=== PATIENT | female | born 1995 | race African-American/Black ===

== ENCOUNTER → 2018-12-10 | Outpatient (CLI) | payer BC ==
[2018-12-10] VITALS (31 sets, daily range): BP systolic 108–117; BP diastolic 60–84
[~2018-12-10] VITALS: Ht 167.6 cm; Wt 77.1 kg
[~2018-12-10] MED LIST: ACHD5005 PO; IBP600T1 PO; MECL12.5 PO; NITR-65 PO; NS IV 1000 ML 1,000 ML IV ONE; NS IV 1000 ML 1,000 ML ONE; PHEN200T27 PO
--- NOTE | 2018-12-10 11:08 | Cardiology Tilt Table Test ---
Cardiology-Tilt Table Test Tilt Table Test Date 12/10/18 Baseline Vitals Vital Signs Date Time Temp Pulse Resp B/P (MAP) Pulse Ox O2 Delivery O2 Flow Rate FiO2 12/10/18 10:22 51 18 117/60 (79) 99 Room Air Vital Signs VS - Last 72 Hours, by Label 12/10/18 12/10/18 12/10/18 12/10/18 10:22 10:25 10:26 10:27 Pulse 51 56 56 55 Resp 18 18 18 18 B/P (MAP) 117/60 (79) 114/74 (87) 111/71 (84) 112/69 (83) Pulse Ox 99 99 99 99 O2 Delivery Room Air Room Air Room Air Room Air 12/10/18 12/10/18 12/10/18 12/10/18 10:28 10:29 10:30 10:31 Pulse 58 61 58 61 Resp 18 18 18 18 B/P (MAP) 115/67 (83) 109/68 (82) 112/61 (78) 108/69 (82) Pulse Ox 97 97 98 98 O2 Delivery Room Air Room Air Room Air Room Air 12/10/18 12/10/18 12/10/18 12/10/18 10:32 10:33 10:34 10:35 Pulse 63 63 63 57 Resp 18 18 18 18 B/P (MAP) 113/70 (84) 111/70 (84) 112/67 (82) 112/67 (82) Pulse Ox 98 98 98 98 O2 Delivery Room Air Room Air Room Air Room Air 12/10/18 12/10/18 12/10/18 12/10/18 10:36 10:37 10:38 10:39 Pulse 57 51 60 60 Resp 18 18 18 18 B/P (MAP) 111/65 (80) 116/63 (80) 114/62 (79) Pulse Ox 98 98 97 99 O2 Delivery Room Air Room Air Room Air Room Air 12/10/18 12/10/18 12/10/18 12/10/18 10:40 10:41 10:42 10:43 Pulse 64 68 63 59 Resp 18 18 18 18 B/P (MAP) 114/69 (84) 111/71 (84) 114/73 (87) 114/73 (87) Pulse Ox 95 95 95 96 O2 Delivery Room Air Room Air Room Air Room Air 12/10/18 12/10/18 12/10/18 12/10/18 10:44 10:45 10:46 10:47 Pulse 67 68 53 57 Resp 18 18 18 18 B/P (MAP) 111/74 (86) 111/70 (84) 116/67 (83) 116/67 (83) Pulse Ox 96 96 96 96 O2 Delivery Room Air Room Air Room Air Room Air 12/10/18 12/10/18 12/10/18 12/10/18 10:48 10:49 10:50 10:51 Pulse 67 68 60 62 Resp 18 18 18 18 B/P (MAP) 111/69 (83) 116/73 (87) 116/73 (87) 110/70 (83) Pulse Ox 96 96 96 96 O2 Delivery Room Air Room Air Room Air Room Air 12/10/18 12/10/18 12/10/18 10:52 10:53 10:55 Pulse 64 59 46 Resp 18 18 18 B/P (MAP) 114/82 (93) 111/64 (80) 116/67 (83) Pulse Ox 96 97 99 O2 Delivery Room Air Room Air Room Air Patient was tilted to 75 degrees for [10] minutes, then returned to supine position, given [2] sublingual nitroglycerin tablets, then tilted again to 75 degrees for [15] minutes. During test, patient was: asymptomatic In Conclusion;: Negative Tilt Table Test Patient instructed to continue to increase salt and fluid intake. Follow up appt on December at 9:40am This is Sarah Bertrand PA-C, as a scribe for Dr. Ayala. SARAH ARAIZA Dec 10, 2018 11:08
== END ==
LOC: CARD 09:22
PROVIDERS: ATTEND Internal Medicine Cardiovascular Disease
DX: R55 Syncope and collapse (principal); F51.01 Primary insomnia; I07.1 Rheumatic tricuspid insufficiency
CPT/HCPCS: 93306; 93660

== ENCOUNTER 2019-01-06 23:41 | Emergency (ER) | payer BC ==
[~2019-01-06] VITALS: Ht 167.6 cm; Wt 74.8 kg
[~2019-01-06 23:41] MED LIST changes: -NS IV 1000 ML 1,000 ML IV ONE; -NS IV 1000 ML 1,000 ML ONE
--- NOTE | 2019-01-07 00:17 | ED EENT ---
History of Present Illness General Chief Complaint: Laceration Stated Complaint: RT EYEBROW LAC Nursing Triage Note: 2cm laceration above right eye. struck with thrown softball. no loc. 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 NO ACTIVE BLEEDING NO LOSS OF CONSCIOUSNESS NO VISION CHANGES C/O HEAD PAIN NO DIZZINESS NO NAUSEA/VOMITING NO PARESTHESIAS OR MOTOR DEFICITS NO NOSE BLEEDING PT IS UP TO DATE ON VACCINATIONS LMP 2012--HAS IUD IN PLACE Allergies and Home Medications Allergies Coded Allergies: No Known Drug Allergies (Unverified , 10/06/12) Home Medications No Active Prescriptions or Reported Meds Patient Home Medication List Home Medication List Reviewed: Yes Review of Systems Review of Systems Constitutional: no symptoms reported Eyes: See HPI Ears: No Symptoms Reported Nose: denies epistaxis; pain Mouth: no symptoms reported Throat: no symptoms reported Respiratory: no symptoms reported Cardiovascular: no symptoms reported Gastrointestinal: no symptoms reported : No Musculoskeletal: no symptoms reported Skin: see HPI Neurological: See HPI, Headache Hematologic/Lymphatic: No Symptoms Reported Immunological/Allergic: no symptoms reported Past Rxvsufr-Autczr-Vojdqd Hx Patient Social History Alcohol Use: Occasionally Uses Recreational Drug Use: No Smoking Status: Never a Smoker 2nd Hand Smoke Exposure: No Recent Foreign Travel: No Contact w/Someone Who Travel: No Recent Infectious Disease Expo: No Recent Hopitalizations: No Immunizations Up To Date Tetanus Booster (TDap): Less than 5yrs PED Vaccines UTD: Yes Seasonal Allergies Seasonal Allergies: No Past Medical History Surgeries: Yes Section Respiratory: No Cardiac: No Neurological: No : No Reproductive Disorders: No 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 Genitourinary: No Gastrointestinal: No Musculoskeletal: No Endocrine: No HEENT: No Cancer: No Psychosocial: No Integumentary: No Blood Disorders: No Family Medical History Family history: Asthma 09 BROTHER (oldest brother) No Family History of: Abdominal aortic aneurysm Anival's disease Alcoholism Aphasia Cancer Cancer of colon Cataract Chest pain Congenital heart disease Congestive heart failure Cystic fibrosis Dementia Dysphagia Family history: Allergy Family history: Alzheimer's disease Family history: Arthritis Family history: Breast disease Family history: Cardiovascular disease Family history: Coronary thrombosis Family history: Diabetes mellitus Family history: Gastrointestinal disease Family history: Glaucoma Family history: Hypertension Family history: Osteoporosis Family history: Thyroid disorder Headache Hearing loss Heart disease Hereditary disease History of - anemia History of - disorder History of - respiratory disease History of drug abuse Human immunodeficiency virus (HIV) seropositivity Hypercholesterolemia Infertile Kidney disease Malignant neoplasm of lung Myocardial infarction Parkinson's disease Prostate cancer Psychotic disorder Seizure disorder Stroke Tuberculosis Visual impairment No Pertinent Family Hx Physical Exam Vital Signs Vital Signs - First Documented 01/06/19 23:59 Temp 97.7 Pulse 60 Resp 16 B/P (MAP) 133/73 (93) Pulse Ox 100 O2 Delivery Room Air Height, Weight, BMI Height: 5'6.00" Weight: 165lbs. 0.0oz. 74.802270xv; 27.4 BMI Method:Stated General Appearance: WD/WN, no apparent distress Eyes: bilateral eye normal inspection, bilateral eye PERRL, bilateral eye EOMI Ears: bilateral ear auricle normal, bilateral ear canal normal, bilateral ear TM normal Nose: sinus tenderness, other (TENDERNESS TO RIGHT AND MOD FRONTAL AREA, AND RIGHT PERIORBITAL AREA. TENDERNESS TO BRIDGE OF NOSE, NO SWELLING OR BRUISING TO NOSE, NO BLEEDING FROM NOSE. NO SEPTAL DEVIATION OF SEPTAL HEMATOMA. 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, no motor/sensory deficits, alert, normal mood/affect, oriented x 3 Skin: normal color, warm/dry, tattoos/piercings (MULTIPLE TATTOOS AND PIERCINGS), other (2 CM SUPERFICIAL LACERATION TO RIGHT BROW) Procedures/Interventions Other Wound Location RIGHT BROW Wound Length (cm): 2 Wound's Depth, Shape: superficial, linear Wound Explored: clean Betadine Prep?: No (ETASEPT) Other Closure Supply: Wound Adhesive Progress/Results/Core Measures Results/Orders My Orders Orders - BOYD LUIS DO Ct Head/Maxillofacial Wo (01/07/19 00:10) Vital Signs/I&O 01/06/19 01/07/19 23:59 01:34 Temp 97.7 97.9 Pulse 60 58 Resp 16 16 B/P (MAP) 133/73 (93) 124/88 (100) Pulse Ox 100 100 O2 Delivery Room Air Room Air Blood Pressure Mean: [address] HEAD/MAXILLOFACIALS--BILATERAL NASAL BONE FRACTURES, PER [facility] VIA FAX AT 0124 Reviewed: Reviewed by Me Departure Impression Primary Impression: Traumatic contusion of right periorbital region Additional Impressions: RIGHT BROW LACERATION Nasal bone fractures Disposition: 01 HOME, SELF-CARE Condition: Stable Departure-Patient Inst. Referrals: CHALINO COOK MD NO,LOCAL PHYSICIAN (PCP) Primary Care Physician Patient Instructions: Laceration Repair With Glue (DC), Nose Fracture (DC), Eye Contusion (DC) Add. Discharge Instructions: ICE TO SORE AREA AT 20 MINUTE INTERVALS LEAVE SKIN GLUE ALONE--WILL FALL OFF ON IT'S OWN IN A FEW DAYS. NO LOTIONS, CREAMS OR OINTMENTS TO AREA TYLENOL AND MOTRIN NEEDED FOR PAIN FOLLOW UP WITH DR. COOK NEXT WEEK FOR FURTHER CARE All discharge instructions reviewed with patient and/or family. Voiced understanding. Scripts No Active Prescriptions or Reported Meds BOYD LUIS DO Jan 07, 2019 00:17
[2019-01-07 01:34] VITALS: BP 124/88
--- NOTE | 2019-01-07 07:10 | Diagnostic Imaging Report ---
PROCEDURE: CT head and maxillofacial without contrast. TECHNIQUE: Multiple contiguous axial images were obtained through the head and facial bones without the use of intravenous contrast. Auto Exposure Controls were utilized during the CT exam to meet ALARA standards for radiation dose reduction. INDICATION: Supraorbital right laceration, trauma. FINDINGS: CT head: There is no hemorrhage, hydrocephalus, edema, mass or mass effect. No evidence for elevated pressures. No acute intracerebral pathology. CT facial bones: No orbital fracture. No postseptal or retrobulbar orbital hematoma. There is mild rightward spurring and deviation of the nonacute nasal septum. [place] references nondisplaced nasal bone fractures, I am not convinced that this is a real finding. I feel the nasal bones are intact. Some lobular membrane thickening in the left maxillary sinus. No paranasal sinus air-fluid levels. The anterior and posterior keene of the frontal sinuses are intact. There is no paranasal sinus air-fluid level. The mastoid air cells and middle ear cavities clear. Bony temporomandibular joints intact. The zygomatic arches intact. The mandible intact. No retained opaque foreign body. IMPRESSION: 1. CT head: Negative. 2. CT facial bones: No convincing evidence for facial fracture or hemo-sinus. No retained opaque foreign body. Dictated by: Dictated on workstation # [id number]
== END 2019-01-07 01:36 | disposition home or self-care (01) ==
LOC: EDUNIT# 23:41 → ER 23:45
DX: S02.2XXA Fracture of nasal bones, initial encounter for closed fracture (principal); S01.111A Laceration without foreign body of right eyelid and periocular area, initial encounter; S00.11XA Contusion of right eyelid and periocular area, initial encounter; W21.07XA Struck by softball, initial encounter; Y93.64 Activity, baseball
CPT/HCPCS: 12011; 70450; 70486

== ENCOUNTER 2019-01-28 17:46 | Emergency (ER) | payer BC ==
[~2019-01-28] VITALS: Ht 167.6 cm; Wt 77.1 kg
[2019-01-28] MEDS ORDERED: fentaNYL INJECTION 100 MCG/2 ML AMP IVP ONE (18:00)
--- NOTE | 2019-01-28 18:06 | NUR ---
SEE DR ACOSTA CHARTING FOR WOUND DESCRIPTION.
[2019-01-28] MEDS ORDERED: LIDOCAINE 1% INJ 20 ML 20 ML VIAL INJ ONE (18:15)
--- NOTE | 2019-01-28 18:30 | Diagnostic Imaging Report ---
INDICATION: Laceration injury. COMPARISON: None. EXAMINATION: Three views of the right great toe were obtained. FINDINGS: No acute fracture or dislocation. There are no focal osseous lesions. There is no soft tissue swelling. Joint spaces are well maintained. No radiopaque foreign bodies are seen. IMPRESSION: Unremarkable radiographic exam of the right great toe. Dictated by: Dictated on workstation # [id number]
--- NOTE | 2019-01-28 18:45 | NUR ---
RESTING IN BED DENIES NEEDS AT THIS TIME.
[2019-01-28] MEDS ORDERED: KETOROLAC 30 MG/ML VIAL ONE (18:47)
[2019-01-28] MEDS ORDERED: KETOROLAC 30 MG/ML VIAL IVP ONE (19:00)
--- NOTE | 2019-01-28 19:01 | NUR ---
REPORT GIVEN TO DAVIS.
[2019-01-28] MEDS ORDERED: HYDROcodone/APAP 5 MG/325 MG (LORTAB) TAB PO ONE (19:30)
[2019-01-28] MEDS ORDERED: TRIM/SULFAMETH 160/800 (SEPTRA DS) TAB PO ONE (19:30)
[2019-01-28] MEDS ORDERED: ACHD5005 PO (19:34)
--- NOTE | 2019-01-28 19:34 | ED Lower Extremity ---
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 IT CUT THROUGH HER SHOE AND LACERATED HER RIGHT GREAT TOE. Nursing Sepsis Screen: No Definite Risk Source: patient Exam Limitations: no limitations History of Present Illness Date Seen by Provider: Jan 28, 2019 Time Seen by Provider: 17:58 Initial Comments This 23-year-old young lady presents to the emergency room with injury to her right great toe after running overt with a lawnmower. The blade struck the dorsal aspect of the toe causing toe nail avulsion. Bleeding is controlled by the time of arrival. Patient is up-to-date on her immunizations. Injury is isolated to the great toe. She is up-to-date on her tetanus immunizations. Allergies and Home Medications Allergies Coded Allergies: No Known Drug Allergies (Unverified , 10/06/12) Home Medications Hydrocodone Bit/Acetaminophen 1 Tab Tab, 1 EACH PO Q4-6HR PRN for PAIN-MODERATE Prescribed by: PROSPER MARTINI on 01/28/191933 Sulfamethoxazole/Trimethoprim 1 Each Tablet, 1 EACH PO BID Prescribed by: PROSPER MARTINI on 01/28/191934 Patient Home Medication List Home Medication List Reviewed: Yes Review of Systems Constitutional: no symptoms reported EENTM: no symptoms reported Respiratory: no symptoms reported Cardiovascular: no symptoms reported Gastrointestinal: no symptoms reported Genitourinary: no symptoms reported : No Musculoskeletal: no symptoms reported Skin: see HPI Psychiatric/Neurological: No Symptoms Reported Past Erzcxzz-Ymgggl-Ejgvyb Hx Past Med/Social Hx: Reviewed Nursing Past Med/Soc Hx Patient Social History Alcohol Use: Occasionally Uses Recreational Drug Use: No Smoking Status: Never a Smoker 2nd Hand Smoke Exposure: No Recent Foreign Travel: No Contact w/Someone Who Travel: No Recent Infectious Disease Expo: No Recent Hopitalizations: No Immunizations Up To Date Tetanus Booster (TDap): Less than 5yrs PED Vaccines UTD: Yes Seasonal Allergies Seasonal Allergies: No Past Medical History Surgeries: Yes Section Respiratory: No Cardiac: No Neurological: No Reproductive Disorders: No 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 Genitourinary: No Gastrointestinal: No Musculoskeletal: No Endocrine: No HEENT: No Cancer: No Psychosocial: No Integumentary: No Blood Disorders: No Family Medical History Family history: Asthma 09 BROTHER (oldest brother) No Family History of: Abdominal aortic aneurysm [place]'s disease Alcoholism Aphasia Cancer Cancer of colon Cataract Chest pain Congenital heart disease Congestive heart failure Cystic fibrosis Dementia Dysphagia Family history: Allergy Family history: Alzheimer's disease Family history: Arthritis Family history: Breast disease Family history: Cardiovascular disease Family history: Coronary thrombosis Family history: Diabetes mellitus Family history: Gastrointestinal disease Family history: Glaucoma Family history: Hypertension Family history: Osteoporosis Family history: Thyroid disorder Headache Hearing loss Heart disease Hereditary disease History of - anemia History of - disorder History of - respiratory disease History of drug abuse Human immunodeficiency virus (HIV) seropositivity Hypercholesterolemia Infertile Kidney disease Malignant neoplasm of lung Myocardial infarction Parkinson's disease Prostate cancer Psychotic disorder Seizure disorder Stroke Tuberculosis Visual impairment No Pertinent Family Hx Physical Exam Vital Signs Vital Signs - First Documented 01/28/19 17:51 Temp 97.1 Pulse 83 Resp 22 B/P (MAP) 142/83 (102) Pulse Ox 99 Capillary Refill : Less Than 3 Seconds Height, Weight, BMI Height: 5'6.00" Weight: 170lbs. 0oz. 77.814585oc; 27.4 BMI Method:Stated General Appearance: WD/WN, mild distress HEENT: normal ENT inspection Neck: normal inspection Respiratory: normal breath sounds, no respiratory distress Ankles: right ankle non-tender, right ankle normal inspection, right ankle normal range of motion, right ankle no evidence of injury Feet: right foot other (there is complete avulsion of the right great toenail with a laceration extending medial to lateral across the center of the nail bed. There is minor oozing of blood. 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 Additional local injection was applied later. Wound was thoroughly cleaned with sterile saline and chlorhexidine. Debris including dirt, a small piece of plastic, and hair was removed. Wound was again scrubbed with sterile saline and chlorhexidine and then irrigated with normal saline. Betadine prep was applied. A [id number] suture and a simple interrupted suture were applied to the laceration across the nail bed to level the tissue. Antibiotic ointment and sterile gauze were used to dress the wound. Progress/Results/Core Measures Results/Orders My Orders Orders - PROSPER STEPHENSON MD Lidocaine 1% Inj 20 Ml (Xylocaine 1% Inj (01/28/19 18:15) Toe(S) (01/28/19 18:08) Ed Iv/Invasive Line Start (01/28/19 18:10) Ketorolac Injection (Toradol Injection) (01/28/19 18:47) Ketorolac Injection (Toradol Injection) (01/28/19 19:00) Sulfamethoxazole/Trimet Ds Tab (Bactrim (01/28/19 19:30) Hydrocodone/Apap 5/325 Tablet (Lortab 5 (01/28/19 19:30) Medications Given in ED Current Medications Medications Dose Ordered Sig/Valerie Route Start Time Stop Time Status Last Admin Dose Admin Fentanyl Citrate 50 mcg ONCE ONCE IVP 01/28/19 18:00 01/28/19 18:01 DC 01/28/19 18:04 50 MCG Ketorolac Tromethamine 15 mg ONCE ONCE IVP 01/28/19 19:00 01/28/19 19:01 DC 01/28/19 18:50 15 MG Lidocaine HCl 20 ml ONCE ONCE INJ 01/28/19 18:15 01/28/19 18:16 DC 01/28/19 18:15 20 ML Vital Signs/I&O 01/28/19 17:51 Temp 97.1 Pulse 83 Resp 22 B/P (MAP) 142/83 (102) Pulse Ox 99 Blood Pressure Mean: 102 Progress Progress Note : Progress Note Patient was seen and examined. She was given fentanyl for pain by IV route. X- ray was obtained and showed no fractures or foreign bodies. Digital block was performed and toe was cleaned and debrided. The laceration across the nail bed was repaired with absorbable suture. Patient was given hydrocodone and Bactrim prior to departure. Toe was dressed with antibiotic ointment and sterile gauze. Diagnostic Imaging Diagonstic Imaging: Xray Plain Films/CT/US/NM/MRI: other (right toes) Comments Toe x-ray viewed by me and report reviewed. See report below: NAME: NNEKA JACKSON [facility] REC#: [id number] PT STATUS: REG ER : 1995 PHYSICIAN: PROSPER STEPHENSON MD ADMIT DATE: 01/28/19/ER Draft Date of Exam:01/28/19 TOE(S) INDICATION: Laceration injury. COMPARISON: None. EXAMINATION: Three views of the right great toe were obtained. FINDINGS: No acute fracture or dislocation. There are no focal osseous lesions. There is no soft tissue swelling. Joint spaces are well maintained. No radiopaque foreign bodies are seen. IMPRESSION: Unremarkable radiographic exam of the right great toe. Dictated on workstation # [id number] Dict: 01/28/19 1826 Trans: 01/28/19 182 [facility] [id number] Interpreted by: MELANIE ALEMAN MD Departure Impression Primary Impression: Toenail avulsion Qualified Codes: S91.209A - Unspecified open wound of unspecified toe(s) with damage to nail, initial encounter Additional Impression: Laceration of toe Qualified Codes: S91.221A - Laceration with foreign body of right great toe with damage to nail, initial encounter Disposition: 01 HOME, SELF-CARE Condition: Improved Departure-Patient Inst. Decision time for Depature: 19:30 Referrals: NO,LOCAL PHYSICIAN (PCP/Family) Primary Care Physician Patient Instructions: Laceration Repair With Stitches (DC) Add. Discharge Instructions: For primary pain control you should use ibuprofen up to 600 mg every 6 hours as needed. If additional pain control as needed, add Tylenol (acetaminophen) or hydrocodone as prescribed. Change your dressings daily until tissue is healed or at least well scabbed. Change more often if needed. Application of antibiotic ointment or Vaseline prior to applying dressing is suggested to prevent dressing from sticking to the wound. You may start showering tomorrow but avoid submersion until the wound is healed. Your toenail may or may not regrow. If it does regrow, it may be disfigured. Monitor your wound for signs of infection such as increasing redness, increasing swelling, puslike drainage, fever, or escalating pain. Please return to care if you notice these symptoms. The wound may continue to lose blood and a yellow fluid for the next few days. Elevation should decrease bleeding, pain, and swelling. Return to the ER or follow up with your doctor if you have any problems or concerns. Your sutures are absorbable and do not need to be removed. All discharge instructions reviewed with patient and/or family. Voiced underst anding. Scripts Sulfamethoxazole/Trimethoprim (Bactrim Ds Tablet) 1 Each Tablet 1 EACH PO BID, #14 TAB Prov: PROSPER STEPHENSON MD 01/28/19 Hydrocodone Bit/Acetaminophen (Hydrocodone/Acetaminophen 5/325mg Tablet) 1 Tab Tab 1 EACH PO Q4-6HR PRN for PAIN-MODERATE MDD 10, #15 TAB Prov: PROSPER STEPHENSON MD 01/28/19 PROSPER STEPHENSON MD Jan 28, 2019 19:34
[2019-01-28] MEDS ORDERED: SULF1TAB35 PO (19:35)
[2019-01-28 19:49] VITALS: BP 135/80
== END 2019-01-28 19:53 | disposition home or self-care (01) ==
LOC: EDUNIT# 17:46 → ER 17:47
DX: S91.201A Unspecified open wound of right great toe with damage to nail, initial encounter (principal); W27.1XXA Contact with garden tool, initial encounter; Y93.02 Activity, running
CPT/HCPCS: 73660